=== PATIENT | male | born 1945 | race Caucasian/White ===

== ENCOUNTER 2017-04-14 10:27 | Emergency (ER) | payer BC, MEDICARE ==
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
[2017-04-14] MEDS: FENTANYL PF 100MCG/2ML VIAL IVP ONE ×2 (10:56→13:10)
[2017-04-14 11:47] LABS: HEMATOCRIT 43.2 % (42.0-52.0); HEMOGLOBIN 15.2 gm/dl (14.0-18.0); MEAN CELL VOLUME 88.3 fl (81-97); MEAN CORPUSCULAR HEMOGLOBIN 31.1 pg (27-33); MEAN CORPUSCULAR HGB CONC 35.2 g/dl (32-36); MEAN PLATELET VOLUME 10.1 fl (7.4-10.4); PLATELET COUNT 193 K/uL (130-400); RED BLOOD COUNT 4.89 M/uL (4.40-5.70); RED CELL DISTRIBUTION WIDTH 12.9 % (11.5-14.5); WHITE BLOOD COUNT W/O DIFF 9.3 K/uL (4.2-12.2)
[2017-04-14 11:58] LABS: ALB/GLOB RATIO 1.5 (1.1-1.8); ALKALINE PHOSPHATASE 81 U/L (38-126); ALT/SGPT 37 U/L (21-72); ANION GAP 7.4 (7-16); AST/SGOT 22 U/L (17-59); BILIRUBIN,TOTAL 0.97 mg/dL (0.2-1.3); BLOOD UREA NITROGEN 11 mg/dL (9-20); CARBON DIOXIDE 25.6 mmol/L (22-30); CREATININE 0.9 mg/dL (0.66-1.25); EST GLOMERULAR FILTRATION RATE > 60 ml/min; GLUCOSE,RANDOM 130 mg/dL (70-110); TOTAL PROTEIN 6.7 gm/dL (6.3-8.2)
[2017-04-14 11:59] LABS: INR 1.03; PARTIAL THROMBOPLASTIN TIME 27.9 SECONDS (24.5-39.1); PROTHROMBIN TIME (PATIENT) 11.1 SECONDS (9.5-12.1)
--- NOTE | 2017-04-15 22:12 | RADIOLOGY REPORT ---
EXAM: CHEST 2 VIEWS HISTORY: CHEST PAIN. TECHNIQUE: Frontal and lateral views of the chest. COMPARISON: None. FINDINGS: Cardiomegaly. The lungs are clear. No pneumothorax. IMPRESSION: CARDIOMEGALY. LUNGS ARE CLEAR. JOB NUMBER: [id number] [facility]TDD
--- NOTE | 2017-04-15 22:18 | RADIOLOGY REPORT ---
EXAM: KNEE, RIGHT 1 or 2 VIEWS HISTORY: PAIN. TECHNIQUE: Two views of the right knee. COMPARISON: None. ENCOUNTER: Initial. FINDINGS: The patient is status post below the knee amputation. Osteopenia with advanced degenerative changes of the knee. There is an old fracture deformity of the distal femoral diaphysis. However, there is an acute comminuted fracture involving the distal femoral metaphysis with medial displacement by approximately 9 mm. Associated soft tissue swelling. IMPRESSION: 1. COMMINUTED, DISPLACED DISTAL FEMORAL METAPHYSEAL FRACTURE. 2. STATUS POST BKA. OLD FRACTURE OF THE MORE PROXIMAL FEMORAL DIAPHYSIS. JOB NUMBER: [id number] [facility]
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
== END 2017-04-14 13:15 | disposition short-term general hospital (02) ==
LOC: ER 10:27
DX: S79.101A Unspecified physeal fracture of lower end of right femur, initial encounter for closed fracture (principal); R07.89 Other chest pain; M50.31 Other cervical disc degeneration, high cervical region; I10 Essential (primary) hypertension; Z87.891 Personal history of nicotine dependence; Z89.511 Acquired absence of right leg below knee; V43.52XA Car driver injured in collision with other type car in traffic accident, initial encounter; Y92.410 Unspecified street and highway as the place of occurrence of the external cause
CPT/HCPCS: 99285 ×2; 96376; 96374; 85730; 85610; 80053; 85027; 71020; 73560; 72125; 71260; 70450; 74177; G0480; Q9967; J3010; 80320